=== PATIENT | female | born 1975 | race Caucasian/White ===

== ENCOUNTER → 2017-07-03 | Outpatient (CLI) | payer OTHER ==
[~2017-07-03] MED LIST: AMOX-559 PO; AUG500 PO; FLUT16SP19 NS; KETO30CA16 IM; LABE100T28 PO; LOR5 PO; LOR5/325 PO; OXYC-373 PO; PREN-127 PO; PROM-110 PO
[2017-07-03 16:32] LABS: PLATELET COUNT, AUTOMATED 272 K/uL (150-450)
== END ==
LOC: LAB 16:17
PROVIDERS: ATTEND Internal Medicine
DX: R51 Headache (principal); R11.2 Nausea with vomiting, unspecified; R53.83 Other fatigue
CPT/HCPCS: 36415; 82040; 82247; 82310; 82374; 82435; 82565; 82947; 84075; 84132; 84155; 84295; 84450; 84460; 84520; 85025; 85651; 86140

== ENCOUNTER → 2017-07-04 | Outpatient (CLI) | payer OTHER ==
--- NOTE | 2017-07-04 12:36 | RADIOLOGY IMAGING REPORT ---
FACILITY: [facility] PATIENT NAME: aDsia Bear : 1975 MR: [id number] V: [id number] EXAM DATE: [id number] ORDERING PHYSICIAN: MARGIE ECHEVERRIA TECHNOLOGIST: Location: [facility] [place] Patient: Dasia Bear : 1975 Visit/Account:[id number] Date of Sevice: 07/04/2017 EXAMINATION: CT head without IV contrast HISTORY: Headache, nausea and vomiting. COMPARISON: CT head from 11/02/2009. TECHNIQUE: Contiguous axial images were obtained from the skull base to the vertex without intraven ous contrast. Sagittal and coronal reformatted images are also submitted. One of the following dose optimization techniques was utilized in the performance of this exam: Autom ated exposure control; adjustment of the mA and/or kV according to the patient's size; or use of an i terative reconstruction technique. Specific details can be referenced in the facility's radiology C T exam operational policy. FINDINGS: Brain volume: Normal. Ventricles: Normal. Acute ischemic changes: None. Hemorrhage: No acute intracranial hemorrhage. Masses/edema: None. Mcmanus-white: Negative. White matter: Normal. Vessels: Negative. Extra-axial: Negative. Calvarium/scalp: Negative. Skull base/visualized face: Negative. Visualized sinuses/orbits: Negative. IMPRESSION: No intracranial mass lesion or hemorrhage. No CT evidence of acute infarct. Report Dictated By: Milla Bravo MD at 07/04/2017 12:28 PM Report E-Signed By: Milla Bravo MD at 07/04/2017 12:32 PM WSN:[id number]
--- NOTE | 2017-07-04 12:40 | RADIOLOGY IMAGING REPORT ---
FACILITY: [facility] [place] PATIENT NAME: Dasia Bear : 1975 MR: [id number] V: [id number] EXAM DATE: [id number] ORDERING PHYSICIAN: MARGIE ECHEVERRIA TECHNOLOGIST: Location: [facility] Patient: Dasia Bear : 1975 Visit/Account:[id number] Date of Sevice: 07/04/2017 SINUSES W/O CONTRAST History: Headaches nausea and vomiting COMPARISON STUDIES: none TECHNIQUE: Axial images were obtained through the paranasal sinuses. Coronal reformatted images wer e obtained from the axial source data. No IV contrast was administered. One of the following dose opt imization techniques was utilized in the performance of this exam: Automated exposure control; adjust ment of the mA and/or kV according to the patient's size; or use of an iterative reconstruction tech nique. Specific details can be referenced in the facility's radiology CT exam operational policy. FINDINGS: Osseous structures: Osseous structures intact. There are no osseous changes to suggest chronic sinu sitis. Very small leftward septal spur noted. Sinuses: Sinuses are well-aerated. No evidence of air-fluid levels or mucoperiosteal thickening. Soft Tissues: Negative. Orbits: Normal. Visualized brain: negative IMPRESSION: Negative exam. There is no evidence of sinusitis. Report Dictated By: Esequiel London MD at 07/04/2017 12:33 PM Report E-Signed By: Esequiel London MD at 07/04/2017 12:36 PM WSN:[id number]
== END ==
LOC: LAB 10:01
PROVIDERS: ATTEND Internal Medicine
DX: J32.9 Chronic sinusitis, unspecified (principal); R51 Headache; R11.2 Nausea with vomiting, unspecified
CPT/HCPCS: 70450; 70486; 81001

== ENCOUNTER → 2017-10-03 | Outpatient (CLI) | payer OTHER ==
[~2017-10-03] MED LIST changes: +GADOBENATE 529MG/1ML 15ML VIAL IVP ONE
--- NOTE | 2017-10-03 14:50 | RADIOLOGY IMAGING REPORT ---
FACILITY: [facility] PATIENT NAME: Dasia Bear : 1975 MR: [id number] V: [id number] EXAM DATE: ORDERING PHYSICIAN: AB PORTER TECHNOLOGIST: Location: Patient: Dasia Bear : 1975 Visit/Account:[id number] Date of Sevice: 10/03/2017 EXAMINATION: Brain MR angiogram HISTORY: Headache COMPARISON: Head CT July 04, 2017 TECHNIQUE: [id number] angiography was performed. Additional postcontrast brain MR angiogram was performed following injection 15 mL MultiHance. 3-D reformations were generated. FINDINGS: Internal carotids: Normal. Anterior/Posterior communicating arteries: Normal. Anterior cerebral arteries: Congenitally diminutive right A1 segment. Middle cerebral arteries: Normal. Posterior cerebral arteries: Normal. Vertebrobasilar: Congenitally diminutive right vertebral artery, otherwise unremarkable. PICA / AICA / SCA / INTERNAL CONTROL MANAGER: Normal. Non-angiographic Findings: None significant. IMPRESSION: Normal brain MR angiogram without and with contrast. No aneurysm identified. Report Dictated By: Pop Mittal MD at 10/03/2017 2:38 PM Report E-Signed By: Pop Mittal MD at 10/03/2017 2:45 PM WSN:[id number]
== END ==
LOC: MRI 07:31
PROVIDERS: ATTEND Psychiatry & Neurology Neurology
DX: G44.84 Primary exertional headache (principal); G44.53 Primary thunderclap headache
CPT/HCPCS: 70546; A9577

== ENCOUNTER → 2018-03-28 | Outpatient (CLI) | payer OTHER ==
[~2018-03-28] MED LIST changes: +BUTA1TAB14 PO; +FEXO-67 PO; -GADOBENATE 529MG/1ML 15ML VIAL IVP ONE; +IBUP600T22 PO; +RANI-366 PO; +RIZA10TA PO; +SERT-181 PO; +TOPI-28 PO
== END ==
LOC: LAB 14:15
PROVIDERS: ATTEND Nurse Practitioner Primary Care
DX: M25.50 Pain in unspecified joint (principal); R79.82 Elevated C-reactive protein (CRP); M79.10 Myalgia, unspecified site
CPT/HCPCS: 36415; 82550; 85651; 86140